=== PATIENT | female | born 1985 | race Caucasian/White ===

== ENCOUNTER 2016-02-26 10:43 | Emergency (ER) | payer OTHER ==
[2016-02-26 10:57] VITALS: BP 135/77; PULSE 84; TEMP 98.1; BMI 24.1
[2016-02-26 11:22] LABS: URINE APPEARANCE CLEAR; URINE BILIRUBIN NEGATIVE (NEGATIVE); URINE BLOOD NEGATIVE (NEGATIVE); URINE COLOR AMBER; URINE GLUCOSE (UA) NEGATIVE (NEGATIVE); URINE KETONE NEGATIVE (NEGATIVE); URINE LEUK ESTERASE NEGATIVE (NEGATIVE); URINE NITRITE POSITIVE (NEGATIVE); URINE PROTEIN NEGATIVE (NEGATIVE); URINE UROBILINOGEN 4.0 E.U/dl E.U./dl (0.2-1.0)
[2016-02-26 11:28] LABS: URINE BACTERIA MODERATE /hpf (NONE SEEN); URINE MUCUS FEW; URINE RBC 1 /hpf (0-3); URINE WBC 4 /hpf (3-5)
--- NOTE | 2016-02-26 11:31 | PDOC ---
History of Present Illness - General Chief Complaint: Urinary Problem Stated Complaint: POSSIBLE UTI Time Seen by Provider: 02/26/16 11:25 History Source: Patient Exam Limitations: No Limitations - History of Present Illness Initial Comments: CHIEF COMPLAINT: 31 y/o afebrile female with no significant PMH c/o pressure to lower middle abdomen for the past 5 days. HISTORY OF PRESENT ILLNESS: The patient admits this is the symptom she normally gets when she has a UTI. She does admit she used to get frequent UTIs , for which she was normally treated with Bactrim. She denies f/c, n/v/d, CP, SOB, back pain, hematuria, dysuria. Vital signs on arrival are within normal limits. REVIEW OF SYSTEMS: GENERAL/CONSTITUTIONAL: No fever/chills. No weakness. No weight change. HEAD, EYES, EARS, NOSE AND THROAT: No change in vision. No ear pain or discharge. No sore throat. CARDIOVASCULAR: No chest pain or shortness of breath. RESPIRATORY: No cough, wheezing, or hemoptysis. GASTROINTESTINAL: +abdominal pressure. No nausea, vomiting, diarrhea. GENITOURINARY: No dysuria, frequency, or change in urination. MUSCULOSKELETAL: No joint or muscle swelling or pain. No neck or back pain. SKIN: No rash or easy bruising. NEUROLOGIC: No headache, vertigo, loss of consciousness, or loss of sensation. PHYSICAL EXAM: GENERAL: The patient is awake, alert, and fully oriented, in no acute distress. She is well appearing, in NAD or obvious discomfort. HEAD: Normal with no signs of trauma. ENT: Pupils equal, round and reactive to light, extraocular movements intact, sclera anicteric, conjunctiva clear. Neck supple. LUNGS: Clear to auscultation bilaterally. Normal excursion. No respiratory distress or use of accessory muscles. CV: RRR, S1/S2, no MRG. Cap refill < 2 sec. ABDOMEN: Soft, non-distended, TTP of suprapubic region. No rebound, guarding, rigidity. BACK: No CVA TTP b/l. EXTREMITIES: Normal range of motion, no edema. NEUROLOGICAL: Normal speech, normal gait. CN II-XII grossly intact. PSYCH: Normal mood, normal affect. SKIN: Warm, dry, normal turgor, no rashes or lesions noted. Past History - Past Medical History Allergies/Adverse Reactions: Allergies Allergy/AdvReac Type Severity Reaction Status Date / Time No Known Allergies Allergy Verified 02/26/16 10:47 Home Medications: Ambulatory Orders Sulfamethoxazole/Trimethoprim [Bactrim Ds -] 1 tab PO BID #14 tablet 02/26/16 Other medical history: denies - Psycho/Social/Smoking Cessation Hx Suicidal Ideation: No Smoking History: Never smoked Information on smoking cessation initiated: No Hx Alcohol Use: No Drug/Substance Use Hx: No Substance Use Type: None *Physical Exam - Vital Signs Last Vital Signs Temp Pulse Resp BP Pulse Ox 98.1 F 84 18 135/77 99 02/26/16 10:45 02/26/16 10:45 02/26/16 10:45 02/26/16 10:45 02/26/16 10:45 Medical Decision Making - Medical Decision Making A/P: 31 y/o female with symptoms of UTI. Plan is as follows: 1. UA/hcg/culture hcg - negative Urine Nitrite positive Will treat with BActrim Pt instructed to take entire course, drink plenty of fluids and f/u with his PCP within 1 week. The patient verbalizes understanding of all instructions, has no further questions and is awaiting discharge. *DC/Admit/Observation/Transfer Diagnosis at time of Disposition: UTI (urinary tract infection) Qualifiers: Urinary tract infection type: acute cystitis Hematuria presence: without hematuria Qualified Code(s): N30.00 - Acute cystitis without hematuria - Discharge Dispostion Disposition: HOME Condition at time of disposition: Good - Patient Instructions Printed Discharge Instructions: DI for Urinary Tract Infection (UTI) Additional Instructions: Discharge Instructions: -Take Bactrim as prescribed -Drink plenty of fluids -Follow up with your doctor within 1 week -Return to the ER with any worsening or concerning symptoms
[2016-02-26] MEDS ORDERED: SULFAMETHOXAZOLE/TRIMETHOPRIM 800MG/160MG D.S. TABLET PO ONE (11:35)
[2016-02-26] MEDS ORDERED: SULFAMETHOXAZOLE/TRIMETHOPRIM 800MG/160MG D.S. TABLET ONE (11:47)
== END 2016-02-26 11:47 | disposition home or self-care (01) ==
LOC: JERFT 10:43
DX: N30.00 Acute cystitis without hematuria (principal)
CPT/HCPCS: 81003; 81015; 84703; 87086; 99281-25

== ENCOUNTER 2019-02-03 14:23 | Emergency (ER) | payer OTHER ==
[2019-02-03 14:34] VITALS: BP 138/87; PULSE 77; TEMP 98.5; BMI 26.6
[2019-02-03 16:00] LABS: BASO % 0.4 % (0-2.0); EOS % 2.1 % (0-4.5); HEMATOCRIT 40.3 % (32.4-45.2); HEMOGLOBIN 13.9 GM/dL (10.7-15.3); LYMPH % 28.1 % (8-40); MCH 30.8 pg (25.7-33.7); MCHC 34.6 g/dl (32.0-36.0); MEAN CELL VOLUME 88.9 fl (80-96); MONO % 6.2 % (3.8-10.2); NEUT % 63.2 % (42.8-82.8); PLATELET COUNT 156 K/MM3 (134-434); RBC 4.53 M/mm3 (3.60-5.2); RDW 13.4 % (11.6-15.6); WHITE BLOOD COUNT 5.7 K/mm3 (4.0-10.0)
[2019-02-03 16:14] LABS: ALBUMIN 3.7 g/dl (3.4-5.0); BILIRUBIN,TOTAL 0.4 mg/dL (0.2-1); BLOOD UREA NITROGEN 11.6 mg/dL (7-18); CALCIUM 8.8 mg/dL (8.5-10.1); CREATININE 0.8 mg/dL (0.55-1.3); POTASSIUM 3.9 mmol/L (3.5-5.1); TOT PROT 7.4 g/dl (6.4-8.2)
[2019-02-03] MEDS ORDERED: HIV POST EXPOSURE PROPHYLAXIS KIT NR ONE (16:58)
[2019-02-03] MEDS ORDERED: HIV POST EXPOSURE PROPHYLAXIS KIT PO ONE (18:12)
--- NOTE | 2019-02-03 18:15 | PDOC ---
History of Present Illness - General Chief Complaint: Non EmpBld/Body Flud Exposure Stated Complaint: BLOOD EXPOSURE Time Seen by Provider: 02/03/19 14:43 History Source: Patient Exam Limitations: No Limitations Past History - Travel Traveled outside of the country in the last 30 days: No Close contact w/someone who was outside of country & ill: No - Past Medical History Allergies/Adverse Reactions: Allergies Allergy/AdvReac Type Severity Reaction Status Date / Time No Known Allergies Allergy Verified 02/26/16 10:47 Home Medications: Ambulatory Orders Sulfamethoxazole/Trimethoprim [Bactrim Ds -] 1 tab PO BID #14 tablet 02/26/16 Raltegravir [Isentress] 400 mg PO BID #46 tab 02/03/19 CVA: No COPD: No CHF: No Psychiatric Problems: Yes (ANXIETY) - Immunization History Immunization Up to Date: Yes - Psycho Social/Smoking Cessation Hx Smoking History: Never smoked Have you smoked in the past 12 months: No Information on smoking cessation initiated: No Hx Alcohol Use: No Drug/Substance Use Hx: No Substance Use Type: None Review of Systems - Review of Systems Able to Perform ROS?: Yes Comments:: 02/03/19 18:20 CONSTITUTIONAL: Absent: fever, chills, diaphoresis, generalized weakness, malaise, loss of appetite HEENT: Absent: rhinorrhea, nasal congestion, throat pain, throat swelling, difficulty swallowing, mouth swelling, ear pain, eye pain, visual Changes CARDIOVASCULAR: Absent: chest pain, loss of consciousness, palpitations, irregular heart rate, peripheral edema RESPIRATORY: Absent: cough, shortness of breath, dyspnea with exertion, orthopnea, wheezing, stridor, hemoptysis GASTROINTESTINAL: Absent: abdominal pain, abdominal distension, nausea, vomiting, diarrhea, constipation, melena, hematochezia GENITOURINARY: Absent: dysuria, frequency, urgency, hesitancy, hematuria, flank pain, genital pain MUSCULOSKELETAL: Absent: myalgia, arthralgia, joint swelling SKIN: Absent: rash, itching, pallor HEMATOLOGIC/IMMUNOLOGIC: Absent: easy bleeding, easy bruising, lymphadenopathy, frequent infections ENDOCRINE: Absent: unexplained weight gain, unexplained weight loss, heat intolerance, cold intolerance NEUROLOGIC: Absent: headache, focal weakness or paresthesias, dizziness, unsteady gait, seizure, mental status changes, bladder or bowel incontinence PSYCHIATRIC: Absent: anxiety, depression, suicidal or homicidal ideation, hallucinations. Is the patient limited Syriac proficient: No *Physical Exam - Vital Signs Last Vital Signs Temp Pulse Resp BP Pulse Ox 98.5 F 77 17 138/87 99 02/03/19 14:30 02/03/19 14:30 02/03/19 14:30 02/03/19 14:30 02/03/19 14:30 - Physical Exam 02/03/19 18:20 GENERAL: The patient is awake, alert, and fully oriented, in no acute distress. HEAD: Normal with no signs of trauma. EYES: Pupils equal, round and reactive to light, extraocular movements intact, sclera anicteric, conjunctiva clear. EXTREMITIES: Normal range of motion, no edma. NEUROLOGICAL: Normal speech, normal gait. PSYCH: Normal mood, normal affect. SKIN: Warm, Dry, normal turgor, no rashes or lesions noted. ED Treatment Course - LABORATORY CBC & Chemistry Diagram: 02/03/19 15:05 02/03/19 15:01 - ADDITIONAL ORDERS Additional order review: Laboratory Results 02/03/19 15:01 Sodium 140 Potassium 3.9 Chloride 106 Carbon Dioxide 27 Anion Gap 7 L BUN 11.6 Creatinine 0.8 Est GFR (CKD-EPI)AfAm 113.06 Est GFR (CKD-EPI)NonAf 97.55 Random Glucose 83 Calcium 8.8 Total Bilirubin 0.4 AST 13 L ALT 17 Alkaline Phosphatase 49 Total Protein 7.4 Albumin 3.7 02/03/19 15:05 RBC 4.53 MCV 88.9 MCHC 34.6 RDW 13.4 MPV 9.0 Neutrophils % 63.2 Lymphocytes % 28.1 Monocytes % 6.2 Eosinophils % 2.1 Basophils % 0.4 Medical Decision Making - Medical Decision Making 02/03/19 18:21 Patient is a 33-year-old female with no past medical history who presents to the ER today after a blood exposure at work. The patient works in our ultrasound department and states while she was helping with a thoracentesis, a sample of the bloody fluid from the procedure flew into her face. She is unsure if it got in her eyes or her mouth. She states she washed out her mouth and face immediately after the incident. She reports no complaints at this time. A/P: Post exposure evaluation Patient is HIV negative. Source patient was identified, no indication of the patient being HIV positive or hep C positive within his chart. Patient would like to start prophylactic medications. Patient follow-up with her primary care doctor/occupational health. Discharge home I discussed the physical exam findings, ancillary test results and final diagnoses with the patient. I answered all of the patient's questions. The patient was satisfied with the care received and felt comfortable with the discharge plan and treatment plan. The Patient agrees to follow up with the primary care physician/specialist within 24-72 hours. Return precautions were given. Discharge - Discharge Information Problems reviewed: Yes Clinical Impression/Diagnosis: Employee exposure to body fluids Condition: Stable Disposition: HOME - Admission No - Additional Discharge Information Prescriptions: Raltegravir [Isentress] 400 mg PO BID #46 tab - Follow up/Referral Referrals: Sivan Wise MD [Staff Physician] - - Patient Discharge Instructions Additional Instructions: You were evaluated today after getting exposed to blood. Take the prophylactic medication as directed. This may make you nauseous. Take the medication with food. Follow-up with employee health in 1 month for further testing. Return to the ER for any new or worsening symptoms. - Post Discharge Activity Work/Back to School Note: Back to Work
== END 2019-02-03 18:18 | disposition home or self-care (01) ==
LOC: JERFT 14:23
CPT/HCPCS: 36415; 80053; 85025; 86317; 86704; 86706; 86803; 87340; 87389; 99282-25